=== PATIENT | male | born 1970 | race Caucasian/White ===

== ENCOUNTER 2016-02-13 10:59 | Emergency (ER) | payer BC ==
[~2016-02-13] VITALS: Ht 180.3 cm; Wt 108.9 kg
[2016-02-13] MEDS ORDERED: HYDROCODONE-AP1 EAC6 PO (11:23)
[2016-02-13 11:30] VITALS: BP 133/92
== END 2016-02-13 12:40 | disposition home or self-care (01) ==
LOC: ER 10:59
DX: S46.211A Strain of muscle, fascia and tendon of other parts of biceps, right arm, initial encounter (principal); Z88.6 Allergy status to analgesic agent; F10.99 Alcohol use, unspecified with unspecified alcohol-induced disorder; X50.0XXA Overexertion from strenuous movement or load, initial encounter; Y93.89 Activity, other specified; Y92.89 Other specified places as the place of occurrence of the external cause; Y99.8 Other external cause status